=== PATIENT | female | born 1970 | race Caucasian/White ===

== ENCOUNTER 2019-12-23 19:40 | Inpatient (IN) | payer OTHER, MEDICAID ==
[~2019-12-23] VITALS: Ht 165.1 cm; Wt 53.8 kg
[~2019-12-23 19:40] MED LIST: SERT50TA PO
[2019-12-23] MEDS ORDERED: DIPH25CA85 PO (20:16)
[2019-12-23 20:32] LABS: BASOPHILS % (AUTO) 0.4 % (0.0-2.0); EOSINOPHILS % (AUTO) 0.1 % (1.0-6.0); HEMATOCRIT 42.4 % (36-46); HEMOGLOBIN 14.4 g/dL (12.0-16.0); LYMPHOCYTES # (AUTO) 1.5 K/uL (1.0-4.8); LYMPHOCYTES % (AUTO) 22.5 % (22.0-44.0); MEAN CORPUSCULAR HEMOGLOBIN 32.3 pg (26.0-34.0); MEAN CORPUSCULAR HGB CONC 33.9 G/dL (31.0-37.0); MEAN CORPUSCULAR VOLUME 95 fL (80-100); MONOCYTES # (AUTO) 0.6 K/uL (0.1-1.0); MONOCYTES % (AUTO) 8.2 % (2.0-9.0); NEUTROPHILS # (AUTO) 4.6 K/uL (1.8-7.7); NEUTROPHILS % (AUTO) 68.8 % (40.0-70.0); PLATELET COUNT (AUTO) 310 K/uL (150-450); RED BLOOD CELL COUNT(AUTO) 4.45 MIL/uL (4.00-5.20); RED CELL DISTRIBUTION WIDTH 13.8 % (11.5-14.5)
[2019-12-23 20:39] LABS: ANION GAP 13 mmol/L (8-16); CALCIUM, TOTAL 9.7 mg/dL (8.8-10.5); CARBON DIOXIDE 26 mmol/L (22-29); CHLORIDE 101 mmol/L (98-107); CREATININE 0.89 mg/dL (0.60-1.30); GLOMERULAR FILTR. RATE CALC > 60 mL/min (>60); GLUCOSE,RANDOM 115 mg/dL (70-110); POTASSIUM 3.5 mmol/L (3.5-5.1); SODIUM SERUM 140 mmol/L (136-145); UREA NITROGEN, BLOOD 23 mg/dL (7-18)
[2019-12-23] MEDS ORDERED: ZOLPIDEM TARTRATE 10 MG TABLET PO PRN (20:45)
[2019-12-23] MEDS ORDERED: LORazepam 2 MG TABLET PO PRN (20:45)
[2019-12-23] MEDS ORDERED: HALOPERIDOL 5 MG TABLET PO PRN (20:45)
[2019-12-23 20:50] LABS: ALANINE AMINOTRANSFERASE 23 U/L (12-78); ALBUMIN 4.6 g/dL (3.4-5.0); ALKALINE PHOSPHATASE 63 U/L (46-116); ASPARTATE AMINOTRANSFERASE 20 U/L (15-37); BILIRUBIN,TOTAL 0.5 mg/dL (0.1-1.0)
[2019-12-23 21:35] LABS: AMPHET/METH SCREEN,URINE NEGATIVE (NEGATIVE); BARBITURATE SCREEN, URINE NEGATIVE (NEGATIVE); BENZODIAZEPINES SCREEN,URINE NEGATIVE (NEGATIVE); CANNABINOID SCREEN,URINE NEGATIVE (NEGATIVE); COCAINE SCREEN,URINE NEGATIVE (NEGATIVE); METHADONE SCREEN, URINE NEGATIVE (NEGATIVE); OPIATE SCREEN,URINE NEGATIVE (NEGATIVE)
[2019-12-23 21:36] LABS: PHENCYCLIDINE SCREEN,URINE NEGATIVE (NEGATIVE)
[2019-12-24 00:45] VITALS: BP 117/79
[2019-12-24 00:48] VITALS: BP 117/79
[2019-12-24 09:58] VITALS: BP 140/79
[2019-12-24] MEDS ORDERED: MAGNESIUM HYDROXIDE SUSPENSION 30 ML UDCUP PO PRN (11:15)
[2019-12-24] MEDS ORDERED: GuaiFENesin/D-METHORPHAN [SUGAR-FREE] 200-20MG/10 ML SYRUP UDCUP PO PRN (11:15)
[2019-12-24] MEDS ORDERED: MAG HYDROX/AL HYDROX/SIMETH ES 30 ML SUSPENSION UDCUP PO PRN (11:15)
[2019-12-24] MEDS ORDERED: NICOTINE 14 MG/24 HOUR PATCH TD PRN (11:15)
[2019-12-24] MEDS ORDERED: DOCUSATE SODIUM 100 MG CAPSULE PO PRN (11:15)
[2019-12-24] MEDS ORDERED: ALBUTEROL SULFATE HFA 90 MCG/PUFF 8 GM INHALER IH PRN (11:15)
[2019-12-24] MEDS ORDERED: ONDANSETRON HCL 4 MG TABLET PO PRN (11:15)
[2019-12-24] MEDS ORDERED: ACETAMINOPHEN 325 MG TABLET PO PRN (11:15)
[2019-12-24] MEDS ORDERED: CloNIDine HCL 0.1 MG TABLET PO PRN (11:15)
[2019-12-24] MEDS ORDERED: IBUPROFEN 400 MG TABLET PO PRN (11:15)
[2019-12-24] MEDS ORDERED: PETROLATUM,WHITE 28 GM JELLY TP PRN (11:15)
[2019-12-24 12:26] VITALS: BP 140/79
[2019-12-24 17:19] VITALS: BP 110/74
[2019-12-24] MEDS: DiphenhydrAMINE HCL 25 MG CAPSULE PO PRN (18:37)
[2019-12-24] MEDS: OLANZapine 5 MG TABLET PO SCH (20:46)
[2019-12-25] MEDS: OLANZapine 5 MG TABLET PO SCH ×2 (09:00→21:00)
[2019-12-25] MEDS: DiphenhydrAMINE HCL 25 MG CAPSULE PO PRN (09:20)
[2019-12-25] MEDS ORDERED: HALOPERIDOL LACTATE 5 MG/ML VIAL ONE (12:09)
[2019-12-25] MEDS ORDERED: LORazepam 2 MG/ML VIAL ONE (12:09)
[2019-12-25] MEDS ORDERED: HALOPERIDOL LACTATE 5 MG/ML VIAL IM ONE (12:15)
[2019-12-25] MEDS ORDERED: LORazepam 2 MG/ML VIAL IM ONE (12:15)
[2019-12-25] MEDS ORDERED: DiphenhydrAMINE HCL 50 MG/ML VIAL IM ONE (12:15)
[2019-12-26] MEDS: OLANZapine 5 MG TABLET PO SCH ×2 (09:00→20:22)
[2019-12-26 12:47] VITALS: BP 123/65
[2019-12-26] MEDS: LOPERAMIDE HCL 2 MG CAPSULE PO PRN (13:13)
[2019-12-26 18:37] VITALS: BP 107/71
[2019-12-27 08:00] VITALS: BP 110/73
[2019-12-27] MEDS: LOPERAMIDE HCL 2 MG CAPSULE PO PRN (08:39)
[2019-12-27] MEDS: OLANZapine 5 MG TABLET PO SCH ×2 (08:39→20:12)
[2019-12-27] MEDS: DiphenhydrAMINE HCL 25 MG CAPSULE PO PRN (20:14)
[2019-12-27 20:42] VITALS: BP 133/69
[2019-12-28 03:31] VITALS: BP 94/75
[2019-12-28] MEDS ORDERED: OLAN5TAB27 PO (09:15)
[2019-12-28] MEDS: OLANZapine 5 MG TABLET PO SCH (10:06)
== END 2019-12-28 12:05 | disposition home or self-care (01) | DRG 885 ==
LOC: EMS 19:46 → 3EI 22:00
DX: F25.1 Schizoaffective disorder, depressive type (principal); F41.9 Anxiety disorder, unspecified; F42.9 Obsessive-compulsive disorder, unspecified; H91.90 Unspecified hearing loss, unspecified ear; R45.850 Homicidal ideations; F19.10 Other psychoactive substance abuse, uncomplicated; I95.9 Hypotension, unspecified; R10.13 Epigastric pain
CPT/HCPCS: 83036; G0480; J1200; J1630; J2060

== ENCOUNTER 2021-03-04 07:22 | Emergency (ER) | payer MEDICARE, MEDICAID ==
[~2021-03-04] VITALS: Ht 167.6 cm; Wt 56.8 kg
[~2021-03-04 07:22] MED LIST changes: +OLAN5TAB27 PO; -SERT50TA PO
[2021-03-04 07:25] VITALS: BP 133/76
[2021-03-04] MEDS ORDERED: IBUPROFEN 600 MG TABLET PO ONE ×2 (08:00)
== END 2021-03-04 08:15 | disposition home or self-care (01) ==
LOC: EMS 07:24
DX: G89.29 Other chronic pain (principal); M25.572 Pain in left ankle and joints of left foot; F41.9 Anxiety disorder, unspecified; F32.9 Major depressive disorder, single episode, unspecified
CPT/HCPCS: 29540; 99282; Z7502; Z7610